=== PATIENT | female | born 1980 | race Caucasian/White ===

== ENCOUNTER 2017-09-23 08:00 | Outpatient (CLI) | payer OTHER ==
[2017-09-23 12:31] LABS: BASOPHILS # (AUTO) 0.1 10^3/uL (0.0-0.1); BASOPHILS % (AUTO) 0.8 %; EOSINOPHILS # (AUTO) 0.2 10^3/uL (0.0-0.7); EOSINOPHILS % (AUTO) 2.2 %; HGB - HEMOGLOBIN 13.5 g/dL (12.0-16.0); LYMPHOCYTES # (AUTO) 1.8 10^3/uL (1.5-3.5); LYMPHOCYTES % (AUTO) 16.5 %; MEAN CORPUSCULAR HEMOGLOBIN 31.6 pg (27.0-31.0); MEAN CORPUSCULAR VOLUME 87.7 fL (81.0-99.0); MEAN PLATELET VOLUME 8.9 fL (7.9-10.8); MONOCYTES # (AUTO) 0.7 10^3/uL (0.0-1.0); NEUTROPHILS # (AUTO) 8.1 10^3/uL (1.5-6.6); NEUTROPHILS % (AUTO) 74.5 %; PLT - PLATELET COUNT 211 10^3/uL (130-450); RED BLOOD COUNT 4.26 10^6/uL (4.20-5.40); RED CELL DISTRIBUTION WIDTH 13.3 % (12.0-15.0); WHITE BLOOD COUNT 10.9 x10^3/uL (4.8-10.8)
[2017-09-23 12:33] LABS: BILIRUBIN,URINE NEGATIVE (NEGATIVE); GLUCOSE, URINE (UA) NEGATIVE (NEGATIVE); KETONES,URINE (UA) NEGATIVE (NEGATIVE); LEUKOCYTE ESTERASE, URINE NEGATIVE (NEGATIVE); NITRITE,URINE NEGATIVE (NEGATIVE); OCCULT BLOOD,URINE NEGATIVE (NEGATIVE); PROTEIN,URINE NEGATIVE (NEGATIVE); UROBILINOGEN,URINE 0.2 (NORMAL) E.U./dL (NORMAL)
[2017-09-23 12:40] LABS: BACTERIA,URINE Few /HPF (None Seen); CLARITY,URINE CLEAR (CLEAR); RBC,URINE 0-5 /HPF (0-5); SQUAMOUS EPITHELIAL CELL,UR FEW Squamous (<= Few)
[2017-09-24 12:56] LABS: HIV AG/AB 4TH GEN NON-REACTIVE (NON-REACTIVE)
[2017-09-24 14:04] LABS: HEPATITIS B SURFACE ANTIGEN NON-REACTIVE (NON-REACTIVE)
== END 2017-09-23 08:01 | disposition home or self-care (01) ==
LOC: LAB.N 08:00
PROVIDERS: ATTEND Obstetrics & Gynecology
DX: Z36.9 Encounter for antenatal screening, unspecified (principal); Z36.0 Encounter for antenatal screening for chromosomal anomalies
CPT/HCPCS: 36415; 81001; 81599; 82105; 82677; 84702; 85025; 86336; 86592; 86762; 86850; 86900; 86901; 87340; 87389

== ENCOUNTER 2017-09-24 11:14 | Emergency (ER) | payer OTHER ==
[2017-09-24 11:43] LABS: BILIRUBIN,URINE NEGATIVE (NEGATIVE); GLUCOSE, URINE (UA) NEGATIVE (NEGATIVE); KETONES,URINE (UA) TRACE mg/dL (NEGATIVE); LEUKOCYTE ESTERASE, URINE NEGATIVE (NEGATIVE); NITRITE,URINE NEGATIVE (NEGATIVE); OCCULT BLOOD,URINE NEGATIVE (NEGATIVE); PROTEIN,URINE NEGATIVE (NEGATIVE); UROBILINOGEN,URINE 0.2 (NORMAL) E.U./dL (NORMAL)
[2017-09-24 11:50] LABS: CLARITY,URINE CLEAR (CLEAR); HCG UR QUAL POSITIVE
--- NOTE | 2017-09-24 11:53 | ED Physician Documentation ---
History of Present Illness - Stated complaint Stated Complaint: ABD CRAMPING/18 WKS PREG - Chief complaint Chief Complaint: Abd Pain - Additonal information Additional information: hx from pt 37 female approx 18 weeks EGA followed by [facility] this Am developed severe tearing lower abd pains lasting 20 min at a time no vag bleed no flank pain no hematuria hx similar sx when not - had eval including 2 ER visits, one pMD visit blood work, CT scan, scopes s dx Review of Systems Constitutional: denies: Fever, Chills Cardiac: denies: Chest pain / pressure Respiratory: denies: Dyspnea GI: reports: Abdominal Pain. 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 - Present Medications Home Medications: Ambulatory Orders Medication Instructions Recorded Confirmed Pnv No.122/Iron/Folic Acid 09/24/17 [ Multi Tablet] - Allergies Allergies/Adverse Reactions: Allergies Allergy/AdvReac Type Severity Reaction Status Date / Time No Known Drug Allergies Allergy Verified 09/24/17 11:19 - Social History Does the pt smoke?: Yes Smoking Status: Current every day smoker Does the pt drink ETOH?: No Does the pt have substance abuse?: No PD ED PE NORMAL - Vitals Vital signs reviewed: Yes - Cardiac Cardiac: RRR - Respiratory Respiratory: No respiratory distress, Clear bilaterally - Abdomen Abdomen: Soft, Other (gravid, soft, NT to palpate, no rebound guarding etc) - Back Back: No CVA TTP - Derm Derm: Normal color - Neuro Neuro: Alert and oriented X 3 Results - Vitals Vitals: Vital Signs - 24 hr 09/24/17 09/24/17 09/24/17 11:16 13:39 16:28 Temperature 36.2 C L 36.9 C 36.7 C Heart Rate 84 84 98 Respiratory 18 16 16 Rate Blood Pressure 111/62 110/65 120/77 O2 Saturation 97 100 100 Oxygen O2 Source Room air - Labs Labs: Laboratory Tests 09/24/17 09/24/17 09/24/17 11:30 11:30 11:30 WBC 13.7 H RBC 4.79 Hgb 14.8 Hct 43.3 MCV 90.5 MCH 30.9 MCHC 34.2 RDW 13.9 Plt Count 231 MPV 8.7 Neut # 11.9 H Lymph # 1.0 L Ford # 0.6 Eos # 0.1 Baso # 0.0 Absolute Nucleated RBC 0.00 Nucleated RBC % 0.0 Sodium 135 Potassium 3.5 Chloride 101 Carbon Dioxide 23 Anion Gap 11.0 BUN 8 Creatinine 0.4 Estimated GFR (MDRD) 181 Glucose 82 Calcium 9.2 Total Bilirubin 0.6 AST 37 ALT 39 Alkaline Phosphatase 43 Total Protein 7.2 Albumin 3.4 Globulin 3.8 Albumin/Globulin Ratio 0.9 L Lipase 25 Urine Color YELLOW Urine Clarity CLEAR Urine pH 7.0 Ur Specific [place] 1.020 Urine Protein NEGATIVE Urine Glucose (UA) NEGATIVE Urine Ketones TRACE Urine Occult Blood NEGATIVE Urine Nitrite NEGATIVE Urine Bilirubin NEGATIVE Urine Urobilinogen 0.2 (NORMAL) Ur Leukocyte Esterase NEGATIVE Ur Microscopic Review NOT INDICATED Urine Culture Comments NOT INDICATED Urine HCG, Qual POSITIVE - Rads (name of study) OB sono Radiology: See rad report (single live IUP 18+2 est wt appropriate for age, low lying placenta neds to be followed - epsiodes of pain coincide with brannon hocks ctx seen on sono - cervix is closed) PD MEDICAL DECISION MAKING - ED course ED course: neg urine - no infection and no blood to suggest renal colic sono shows brannon delacruz ctx, cervix closed, no abruption, no acute process d/w Dr Escalera who advises that at 18 weeks there is nothing that can be done even if this did progress to labor and rec fluids and tylenol is very worried about going home, he is not convinced the pain is brannon delacruz because she had similar pain before , wants to know what the cause if unfortunately, if prior wup including CT scans and scopes did not yield a dx I am unlikely to be able to determine a dx not already found - furthermore the pt is now which sig reduces the imaging options etc safely available I rec we try IVF and apap and rec by OB and likely dc with outpt OB fup per nurse, after the IVF and tylenol pt reported she felt better and was ready to go and took her dc papers and departed before I got to recheck her Departure - Departure Disposition: Home, Self Care Clinical Impression: Brannon Delacruz' contraction Condition: Good Follow-Up: Ovi Escalera MD [Provider Admit Priv/Credential] - Comments: The urine did not show any infection. The ultrasound showed a single live baby in the uterus. The placenta is low lying and the location needs to be checked periodically as the progresses to be sure the placenta does not cross over the cervix when you go into labor. But the placenta is atached to the uterine wall - there is no tear or bleeding The pain episodes you had coincided with brannon delacruz contractions seen on the ultrasound - brannon delacruz contractions are not premature labor and it is OK for you to go home. Recommend that you drink plenty of fluid - dehydration can make the uterus more irritable. If the pains occur more frequently or there is any bleeding or leaking fluid you need to call your OB and come back to the ER right away. Otherwise please follow up with your OB for a recheck this week.
[2017-09-24 12:03] LABS: BASOPHILS % (AUTO) 0.2 %; EOSINOPHILS # (AUTO) 0.1 10^3/uL (0.0-0.7); HGB - HEMOGLOBIN 14.8 g/dL (12.0-16.0); LYMPHOCYTES % (AUTO) 7.1 %; MEAN CORPUSCULAR HEMOGLOBIN 30.9 pg (27.0-31.0); MEAN CORPUSCULAR HGB CONC 34.2 g/dL (32.0-36.0); MEAN CORPUSCULAR VOLUME 90.5 fL (81.0-99.0); MEAN PLATELET VOLUME 8.7 fL (7.9-10.8); MONOCYTES # (AUTO) 0.6 10^3/uL (0.0-1.0); MONOCYTES % (AUTO) 4.2 %; NEUTROPHILS # (AUTO) 11.9 10^3/uL (1.5-6.6); NEUTROPHILS % (AUTO) 87.5 %; PLT - PLATELET COUNT 231 10^3/uL (130-450); RED BLOOD COUNT 4.79 10^6/uL (4.20-5.40); RED CELL DISTRIBUTION WIDTH 13.9 % (12.0-15.0); WHITE BLOOD COUNT 13.7 x10^3/uL (4.8-10.8)
[2017-09-24 12:11] LABS: ALBUMIN 3.4 g/dL (3.2-5.5); ALBUMIN/GLOBULIN RATIO 0.9 (1.0-2.2); BILIRUBIN,TOTAL 0.6 mg/dL (0.2-1.0); CALCIUM 9.2 mg/dL (8.5-10.3); CREATININE 0.4 mg/dL (0.4-1.0); TOTAL PROTEIN 7.2 g/dL (6.7-8.2)
--- NOTE | 2017-09-24 14:22 | Ultrasound Report ---
EXAM: LIMITED OBSTETRICAL ULTRASOUND EXAM DATE: 09/24/2017 01:45 PM. CLINICAL HISTORY: Pelvic pain. COMPARISON: None. TECHNIQUE: Real-time sonographic evaluation of the fetus performed by the stem crusher. Multiple repre sentative static images were saved for review. DATING: Established EGA 18 weeks 2 days with ALICIA 02/23/2018 based on LMP. EGA 18 weeks 1 day with ALICIA 02/24/2018 based on the current ultrasound. GENERAL EVALUATION Myles . Cardiac activity: 154 bpm. movement: Visualized. Presentation: Breech Placenta: Anterior position. No previa. Low-lying placenta coming to within 1 cm of the internal os. Small placental lobo. Amniotic fluid: Normal, PRUDENCE 12.7 MVP 4.7 cm. BIOMETRY Bi-Parietal Diameter (BPD): 3.93 cm, 18 weeks 0 days Head Circumference (HC): 15.18 cm, 18 weeks 1 day Abdominal Circumference (AC): 12.30 cm, 18 weeks 0 days Femur Length (FL): 2.69 cm, 18 weeks 1 day Estimated Weight: 223 g gm. ANATOMY Grossly unremarkable. MATERNAL STRUCTURES Uterus: Unremarkable. Cervix: Long and closed. Transabdominal length 3.2 cm. Right ovary/adnexa: 2.7 x 3.7 x 1.7 cm, unremarkable. Left ovary/adnexa: 2.0 x 3.1 x 1.5 cm, unremarkable. Free fluid: None. Other: Patient's pain appeared to correspond to Bracken Weems contractions during the exam. IMPRESSION: 1. Myles live intrauterine with gestational age 18 weeks 2 days based on LMP. 2. Estimated weight is within expected limits for assigned dating. 3. Low-lying placenta. Follow-up near term is recommended. 4. Pain during Bracken Weems contractions. [facility] Referring Provider Line: [phone] SITE ID: [id number]
[2017-09-24] MEDS ORDERED: ACETAMINOPHEN 325 MG TABLET PO STA (15:15)
[2017-09-24] MEDS ORDERED: SODIUM CHLORIDE 0.9% 1,000 ML IV ONE (15:15)
[2017-09-24 16:29] VITALS: BP 120/77
== END 2017-09-24 16:40 | disposition home or self-care (01) ==
LOC: ED 11:14
DX: O47.02 False labor before 37 completed weeks of gestation, second trimester (principal); O99.332 Smoking (tobacco) complicating pregnancy, second trimester; Z3A.18 18 weeks gestation of pregnancy
CPT/HCPCS: 36415; 76815; 80053; 81003; 81025; 83690; 85025; 96360; 99283; 99284; A9270; 81001; 87086

== ENCOUNTER 2017-10-12 07:16 | Outpatient (CLI) | payer OTHER ==
--- NOTE | 2017-10-13 15:42 | Ultrasound Report ---
OB ULTRASOUND: 10/12/2017 CLINICAL INDICATION: anatomy. COMPARISON: 09/24/2017. CLINICAL INDICATIONS: anatomy. TECHNIQUE: Real-time scanning was performed with member services representative static images obtained. LAST MENSTRUAL PERIOD 05/19/2017 CLINICAL AGE 20 weeks 6 days US AGE 20 weeks 5 days EFW HADLOCK 394 grams EFW% HADLOCK 54% HEART RATE 152 bpm EDC 02/23/2018 US EDC 02/24/2018 BPD HADLOCK 19 weeks 6 days; Mean mm 46 HC HADLOCK 20 weeks 5 days; Mean mm 183 AC HADLOCK 21 weeks 0 days; Mean mm 159 FL HADLOCK 21 weeks 2 days; Mean mm 36 PRESENTATION cephalic. PLACENTAL LOCATION anterior. CERVICAL LENGTH TA 3.3 cm AMNIOTIC FLUID 10.2 cm; MVP 4.0 cm FINDINGS There is a single viable intrauterine gestation, in cephalic presentation. heart rate is 152 BPM. The placenta is anterior, and low lying, terminating 1.1 cm from the os. The amniotic fluid volume is subjectively normal, with the deepest pocket of 4 cm. By size, the fetus measures 20 weeks 5 days (20 weeks 6 days by previous sonogram). The following anatomic structures were visualized and appear normal: The intracranial contents, including the ventricles and posterior fossa; the lips and orbits; the spine; the heart, including 4 chamber view and outflow tracts, and diaphragm; the abdominal contents, including the stomach, the bilateral kidneys, and urinary bladder, as well as a normal 3 vessel cord insertion; 4 limbs. No free fluid or adnexal lesion is appreciated. IMPRESSION: SINGLE VIABLE INTRAUTERINE GESTATION, WITH EXPECTED GROWTH. NORMAL ANATOMIC SURVEY. ANTERIOR, LOW LYING PLACENTA. THIS SHOULD BE FOLLOWED UP IN THE THIRD TRIMESTER. TD: 10/12/2017 11:13 MTDD
== END 2017-10-12 07:17 | disposition home or self-care (01) ==
LOC: DI 07:16
PROVIDERS: ATTEND Obstetrics & Gynecology
DX: Z36.9 Encounter for antenatal screening, unspecified (principal); O44.42 Low lying placenta NOS or without hemorrhage, second trimester
CPT/HCPCS: 76811

== ENCOUNTER 2017-12-16 08:34 | Outpatient (CLI) | payer OTHER | END 2017-12-16 08:35 | disposition home or self-care (01) | LOC: DI 08:34 | PROVIDERS: ATTEND Obstetrics & Gynecology | DX: Z53.9 Procedure and treatment not carried out, unspecified reason (principal) ==

== ENCOUNTER 2018-01-03 21:38 | Observation (INO) | payer OTHER ==
[2018-01-03 22:16] LABS: BASOPHILS # (AUTO) 0.1 10^3/uL (0.0-0.1); BASOPHILS % (AUTO) 0.6 %; EOSINOPHILS # (AUTO) 0.2 10^3/uL (0.0-0.7); EOSINOPHILS % (AUTO) 1.5 %; HGB - HEMOGLOBIN 11.7 g/dL (12.0-16.0); LYMPHOCYTES # (AUTO) 2.3 10^3/uL (1.5-3.5); LYMPHOCYTES % (AUTO) 17.7 %; MEAN CORPUSCULAR HGB CONC 33.3 g/dL (32.0-36.0); MEAN PLATELET VOLUME 8.9 fL (7.9-10.8); MONOCYTES % (AUTO) 7.5 %; NEUTROPHILS # (AUTO) 9.4 10^3/uL (1.5-6.6); NEUTROPHILS % (AUTO) 72.7 %; PLT - PLATELET COUNT 285 10^3/uL (130-450); RED BLOOD COUNT 3.91 10^6/uL (4.20-5.40); RED CELL DISTRIBUTION WIDTH 13.1 % (12.0-15.0)
--- NOTE | 2018-01-04 00:49 | Ultrasound Preliminary Report ---
Exam: US OB LIMITED IMPRESSION: 1. Anterior placenta without evidence of previa or abruption. 2. PRUDENCE 9.5 cm. [facility] SITE ID: [id number]
--- NOTE | 2018-01-04 01:05 | Ultrasound Report ---
EXAM: OB LIMITED EXAM DATE: 01/03/2018 11:28 PM. CLINICAL HISTORY: Vaginal bleeding. COMPARISON: 09/24/2017. TECHNIQUE: Real-time transabdominal sonographic evaluation performed. Static images obtained and revi ewed. FINDINGS: Established EGA 32 weeks, 5 days with ALICIA 02/23/2018. Single fetus in cephalic position. heart rate 147 beats per minute. The placenta is anterior without evidence of previa or abruption. Amniotic fluid index 9.5 cm, MVP 3.1 cm. IMPRESSION: 1. Anterior placenta without evidence of previa or abruption. 2. PRUDENCE 9.5 cm. [facility] Referring Provider Line: [phone] SITE ID: [id number]
[2018-01-04] MEDS ORDERED: LACTATED RINGERS 1,000 ML IV ONE ×2 (01:19→01:27)
[2018-01-04] MEDS ORDERED: SODIUM CHLORIDE FLUSH 0.9% 10 ML SYRINGE IVP PRN (01:49)
[2018-01-04] MEDS: BETAMETHASONE 30 MG/5 ML VIAL IM SCH (01:52)
[2018-01-04] MEDS ORDERED: ACETAMINOPHEN 325 MG TABLET PO PRN (01:55)
[2018-01-04] MEDS ORDERED: ZOLPIDEM 5 MG TABLET PO PRN (01:56)
--- NOTE | 2018-01-04 02:10 | Ultrasound Preliminary Report ---
Exam: US OB TRANSVAGINAL IMPRESSION: 1. Reportedly 32 week 6 day gestation. Heart rate 144 bpm currently with cephalic presentation. 2. Cervix measures short at 1.8 cm. There is probable small amount of mucus within the endocervical c anal but without definitive funneling. [facility] SITE ID: [id number]
--- NOTE | 2018-01-04 02:20 | Ultrasound Report ---
EXAM: LIMITED OB TRANSVAGINAL ULTRASOUND EXAM DATE: 01/04/2018 01:26 AM. CLINICAL HISTORY: Cervical length, cannot evaluate cervix clinically. COMPARISON: Prior day. TECHNIQUE: Transvaginal imaging of the cervix. IMPRESSION: 1. Reportedly 32 week 6 day gestation. Heart rate 144 bpm currently with cephalic presentation. 2. Cervix measures short at 1.8 cm. There is probable small amount of mucus within the endocervical c anal but without definitive funneling. [facility] Referring Provider Line: [phone] SITE ID: [id number]
[2018-01-04] MEDS: LACTATED RINGERS 1,000 ML IV SCH ×4 (02:50→17:28)
--- NOTE | 2018-01-04 08:27 | PROVIDER PROGRESS NOTE ---
Subjective - Prog Note Date Prog Note Date: 01/04/18 Prog Note Time: 08:24 - Subjective Pt reports feeling: Improved (Pt christiano contractions. Pt is drinking pot of coffee daily. Still smokes. 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 First C/ S for breech. Pt has had a Cold knife [facility]. Reviewed Hx with Dr Bradley.) Objective - Vital Signs/Intake & Output Reviewed Vital Signs: Yes Vital Signs: Vital Signs x48h Temp Pulse Resp BP Pulse Ox 01/04/18 08:10 96 18 109/49 L 98 01/04/18 06:08 36.8 C 81 17 106/57 L 96 01/04/18 02:09 36.8 C 82 20 113/68 Intake & Output: Intake & Output 01/01/18 01/02/18 01/03/18 01/04/18 23:59 23:59 23:59 23:59 Intake Total 1000 Balance 1000 - Objective General Appearance: positive: No acute distress, Alert ENT: positive: ENT inspection nml Neck: positive: Nml inspection Respiratory: positive: Chest non-tender, No respiratory distress, Breath sounds nml Cardiovascular: positive: Regular rate & rhythm, No murmur, No gallop Abdomen: positive: Non-tender, No distention, Mass (Uterus is nontender NST is not picking up any contractions.) Back: positive: Nml inspection. negative: CVA tenderness (R), CVA tenderness (L ) Skin: positive: Color nml, No rash, Warm, Dry Extremities: negative: Calf tenderness, Sydney's sign/cords Neurologic/Psychiatric: positive: Oriented x3 - Lab Results Fish Bones: 01/03/18 22:10 Other Labs: Lab Results x24hrs 01/03/18 Range/Units 22:10 WBC 13.0 H (4.8-10.8) x10^3/uL RBC 3.91 L (4.20-5.40) 10^6/uL Hgb 11.7 L (12.0-16.0) g/dL Hct 35.2 L (37.0-47.0) % MCV 90.0 (81.0-99.0) fL MCH 30.0 (27.0-31.0) pg MCHC 33.3 (32.0-36.0) g/dL RDW 13.1 (12.0-15.0) % Plt Count 285 (130-450) 10^3/uL MPV 8.9 (7.9-10.8) fL Neut # 9.4 H (1.5-6.6) 10^3/uL Lymph # 2.3 (1.5-3.5) 10^3/uL Giles # 1.0 (0.0-1.0) 10^3/uL Eos # 0.2 (0.0-0.7) 10^3/uL Baso # 0.1 (0.0-0.1) 10^3/uL Absolute Nucleated RBC 0.00 x10^3/uL Nucleated RBC % 0.0 /100WBC Assessment/Plan - Problem List (1) with 33 completed weeks gestation Impression: Pt is a 37 yo 33 week prior C/S with cervical changes. by Dr Lamb exam +1. Cx is 1.8 cm by US. Pt has received first dose of betamethazone 12.5 mg. Second dose planed for this AM at 0100. Cautioned pt about smoking and delivery. need to limit caffeine intake. Prior C/S for breech. pt is scheduled for C/S at 39 weeks. If delivery anticipated prior to 36 wks need to transport if able. Plan to discharge tomorrow if stable.
[2018-01-04] MEDS ORDERED: POLYETHYLENE GLYCOL 3350 17 GM PACKET PO SCH (09:00)
--- NOTE | 2018-01-04 11:04 | HISTORY & PHYSICAL EXAMINATION ---
DATE OF SERVICE: 01/04/2018 Physician: Ovi Bradley MD OBSERVATION H AND P DIAGNOSES 1. Spontaneous painless bleeding. 2. A 32-week 6-day gestation. 3. Prior report of placenta previa. 4. Smoker. 5. Advanced maternal age. 6. Prior C/S HISTORY OF PRESENT ILLNESS: Patient is a 37-year-old 5, para 1-0-3-1, at 32 weeks 6 days' gestation based on early ultrasound with an ALICIA of 02/23/2018. At roughly 9 p.m. tonight she experienced spontaneous bleeding of bright red blood, described as a volume typical of a menstrual period. There was no suspicion of ruptured membranes, and patient did not report regular uterine contractions. She had no continued abdominal or uterine pain. Patient has had regular care. She reports that there was suspicion of previa. At 18 weeks' gestational age, she had an ER visit for tearing abdominal pain that was self- limiting and spontaneously resolved. With today's complaints there are no fevers, chills, or recent illness or recent intercourse. She reports no abdominal trauma. She has had a history of cervical dysplasia inclusive of cervical conization and laser ablation due to CIRILO 3 in 2013. She is a current smoker. Obstetrically, she had a delivery in 2012 of a living male at 38 weeks' gestation. Prior to that, she has had 3 therapeutic abortions. PAST MEDICAL HISTORY: Patient has difficulties with depression and peripartum depression. PAST SURGICAL HISTORY: section; cervical conization and laser ablation of CIS in 2013. ALLERGIES: NO KNOWN DRUG ALLERGIES. MEDICATIONS: vitamins and iron. FAMILY HISTORY: Positive for diabetes, a neurologic tube defect, congenital heart defect. SOCIAL HISTORY: Domestic partner Sean Joshua, who is the father of the baby. 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 Smokes. No drug or alcohol use reported. OBSTETRICAL LABS: Blood type A-positive, antibody negative. Pap smear normal cytology. HPV negative. GC chlamydia negative, HIV negative, hepatitis B surface antigen negative. RPR negative. Urine culture negative. Glucose challenge test not listed. REVIEW OF SYSTEMS CONSTITUTIONAL: Negative. HEENT: Negative. PULMONARY: Negative. CARDIAC: Negative. GASTROINTESTINAL: Negative. GENITOURINARY: Reference HPI. MUSCULOSKELETAL: Negative. NEUROLOGICAL: Negative. PSYCH: Currently feels well and not depressed. PHYSICAL EXAMINATION GENERAL: Well groomed, lying comfortably on L & D gurney, alert, oriented. NECK: Supple. No thyromegaly. HEENT: EOMI. Nonicteric sclerae. BREASTS: Deferred. LUNGS: Clear. CARDIAC: Exam regular, no murmur, no gallop. ABDOMEN: No flank pain. No organomegaly. No tenderness. UTERUS: Slightly smaller than expected by Barry vertex presentation. Rare mild contraction, no pattern. External monitor baseline 120s to 135, moderate variability, no worrisome decels, rare contractions. EXTERNAL GENITALIA: No lesions. VAGINA: Scant old blood, no fluid. CERVIX: Cannot reach cervix; it is posterior and tender, +1 station though. Await ultrasound. EXTREMITIES: Nonedematous. NEUROLOGIC: Grossly intact. SKIN: No obvious rash. ASSESSMENT: Patient experienced a spontaneous bleed this evening that has been limiting. Physical examination finds evidence of vaginal bleeding. Ultrasound documents no current previa or evidence of abruption. That said, presenting part is lower than expected, and patient did report pelvic pressure. There is no regular contraction pattern by palpation or tocodynamometer. Patient is status post cone biopsy and laser cervical surgery. This may increase her chances for delivery. Note, the surgery was done after her vaginal delivery in 2012. These factors warrant caution. PLAN 1. Continued observation with patient formally admitted for observation. 2. Fluid support with a 1 liter bolus. 3. Betamethasone 12 mg x2 doses. 4. We will check cervical length by ultrasound. This observation should be of limited time duration and not beyond 72 hours. TD: 01/04/2018 02:54 [facility]PITALJosé Antonio
[2018-01-04] MEDS: SODIUM CHLORIDE FLUSH 0.9% 10 ML SYRINGE IVP SCH ×2 (11:56→14:40)
[2018-01-05] MEDS: BETAMETHASONE 30 MG/5 ML VIAL IM SCH (01:47)
[2018-01-05 01:56] VITALS: BP 95/43
[2018-01-05] MEDS: SODIUM CHLORIDE FLUSH 0.9% 10 ML SYRINGE IVP SCH (08:08)
--- NOTE | 2018-01-05 08:49 | PROVIDER PROGRESS NOTE ---
Subjective - Prog Note Date Prog Note Date: 01/05/18 Prog Note Time: 08:46 - Subjective Pt reports feeling: Improved (Pt notes good FM. christiano contractions. Spotting resolving recieved her second dose of Betamethazone.) Objective - Vital Signs/Intake & Output Vital Signs: Vital Signs x48h Temp Pulse Resp BP Pulse Ox 01/05/18 01:54 36.5 C 85 16 95/43 L 97 Intake & Output: Intake & Output 01/02/18 01/03/18 01/04/18 01/05/18 23:59 23:59 23:59 23:59 Intake Total 3000 Output Total 1550 1050 Balance 1450 -1050 - Objective General Appearance: positive: No acute distress, Alert Comments/Other: NST reactive - Lab Results Fish Bones: 01/03/18 22:10 Assessment/Plan - Problem List (1) with 33 completed weeks gestation Impression: to followup in 1 week. (2) Pollok Weems' contraction Impression: P tto return for further bleeding. Pelvic rest. no lifting. 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
== END 2018-01-05 09:21 | disposition home or self-care (01) ==
LOC: WFO 21:38 → FBP 21:43 → WFO 21:43 → FBP 01-04 01:49
PROVIDERS: ADMIT Obstetrics & Gynecology; ATTEND Obstetrics & Gynecology
DX: O46.93 Antepartum hemorrhage, unspecified, third trimester (principal); O47.03 False labor before 37 completed weeks of gestation, third trimester; O99.333 Smoking (tobacco) complicating pregnancy, third trimester; O09.523 Supervision of elderly multigravida, third trimester; O34.219 Maternal care for unspecified type scar from previous cesarean delivery; N85.8 Other specified noninflammatory disorders of uterus; O34.43 Maternal care for other abnormalities of cervix, third trimester; Z3A.32 32 weeks gestation of pregnancy
CPT/HCPCS: 36415; 76815; 76817; 85025; 96360; 96361; 96372; 99213; A9270; G0378; J7120

== ENCOUNTER 2018-01-11 09:29 | Outpatient (CLI) | payer OTHER ==
[2018-01-11 12:51] LABS: HGB - HEMOGLOBIN 12.2 g/dL (12.0-16.0); MEAN CORPUSCULAR HEMOGLOBIN 30.4 pg (27.0-31.0); MEAN CORPUSCULAR HGB CONC 33.4 g/dL (32.0-36.0); MEAN CORPUSCULAR VOLUME 90.9 fL (81.0-99.0); MEAN PLATELET VOLUME 9.7 fL (7.9-10.8); RED BLOOD COUNT 4.01 10^6/uL (4.20-5.40); RED CELL DISTRIBUTION WIDTH 13.1 % (12.0-15.0); WHITE BLOOD COUNT 13.9 x10^3/uL (4.8-10.8)
== END 2018-01-11 09:30 ==
LOC: LAB.N 09:29
PROVIDERS: ATTEND Obstetrics & Gynecology
DX: Z34.90 Encounter for supervision of normal pregnancy, unspecified, unspecified trimester (principal)
CPT/HCPCS: 36415; 82950; 85027; 86850

== ENCOUNTER 2018-01-19 08:08 | Outpatient (CLI) | payer OTHER | END 2018-01-19 08:09 | disposition home or self-care (01) | LOC: LAB 08:08 | PROVIDERS: ATTEND Obstetrics & Gynecology | DX: O99.810 Abnormal glucose complicating pregnancy (principal) | CPT/HCPCS: 36415; 82951; 82952 ==

== ENCOUNTER 2018-01-24 14:57 | Outpatient (CLI) | payer OTHER | END 2018-01-24 14:58 | LOC: LAB.R 14:57 | PROVIDERS: ATTEND Obstetrics & Gynecology | DX: Z36.89 Encounter for other specified antenatal screening (principal) | CPT/HCPCS: 87081 ==

== ENCOUNTER 2018-02-21 11:30 | Outpatient (CLI) | END 2018-02-21 11:31 | disposition home or self-care (01) ==

== ENCOUNTER 2018-02-22 05:30 | Inpatient (IN) | payer OTHER ==
[2018-02-22] MEDS ORDERED: LACTATED RINGERS 1,000 ML IV ONE ×4 (06:05→08:34)
[2018-02-22 06:35] LABS: MEAN CORPUSCULAR HGB CONC 33.1 g/dL (32.0-36.0); MEAN CORPUSCULAR VOLUME 90.4 fL (81.0-99.0); MEAN PLATELET VOLUME 9.9 fL (7.9-10.8); RED CELL DISTRIBUTION WIDTH 13.5 % (12.0-15.0); WHITE BLOOD COUNT 11.7 x10^3/uL (4.8-10.8)
[2018-02-22] MEDS ORDERED: CITRIC ACID/SODIUM CITRATE 15 ML UDC PO ONE (07:03)
--- NOTE | 2018-02-22 07:27 | PREOP HISTORY & PHYSICAL ---
DATE OF SERVICE: 02/22/2018 Physician: Ovi Bradley MD PREOPERATIVE HISTORY/PHYSICAL 02/21/2018 FOR ANTICIPATED DATE OF PROCEDURE 02/22/2018 DIAGNOSES 1. A 39-week' gestation. 2. Prior section. 3. Desires sterilization. 4. Advanced maternal age. 5. Smoker. HISTORY OF PRESENT ILLNESS: Patient is a 38-year-old 5, para 1-0-3-1 woman who is dated by LMP confirmed with early ultrasound as having an ALICIA of March 01. LMP is 05/25/2017 with ultrasound on 08/02/2017, 10 weeks 5 days. [facility]. Throughout her , she has continued tobacco use, though she has attempted to taper this. She has a history of gestational hypertension and cervical incontinence in prior pregnancies. There is a history of genital herpes, which is inactive on acyclovir suppression. There is also a distant history of HGSIL Pap smear. Reference record. Basic labs: Chlamydia GC negative. Blood type A positive. Antibody screen negative. HIV negative. RPR nonreactive, rubella immune, hepatitis B surface antigen negative. Urinalysis negative. Quad marker negative. Pap smear . Glucola challenge test positive. Glucose tolerance test normal (fasting 80, 1-hour 154, 2-hour 148, and 3-hour 158). Strep status negative. PAST MEDICAL HISTORY: Depression with depression. PAST SURGICAL HISTORY: section. MEDICATIONS 1. Acyclovir. 2. vitamins with iron. FAMILY HISTORY: Diabetes: Mother, maternal parents. Depression: Mother, aunts, and grandmother. Hypertension: Mother, father, paternal grandmother. Congenital anomalies: None. Unexplained retardation: None. Chromosomal abnormalities: None. 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 No drug or alcohol use but has continued to smoke throughout the , though she has tapered the amount. REVIEW OF SYSTEMS CONSTITUTIONAL: Negative. HEENT: Negative. LUNGS: Negative now, but prior smoker's cough. Chest x-ray negative for pneumonia or mass. CARDIAC: Negative. GASTROINTESTINAL: Negative. GENITOURINARY: Reference cytology and LEEP. MUSCULOSKELETAL: Negative. NEUROLOGIC: Negative. SKIN: Negative. PHYSICAL EXAMINATION GENERAL: Well groomed, pleasant, slender. VITAL SIGNS: Normotensive. HEENT: Supple neck. No thyromegaly. Normal dentition. EOMI. No jaundice. LUNGS: On rare occasion wheeze, but otherwise clear. CARDIAC: Regular. No murmur, no gallop. ABDOMEN: No hepatosplenomegaly. No abdominal tenderness. UTERUS: Enlarged consistent with dates. Estimated weight 7.5 pounds. Vertex presentation. EXTERNAL GENITALIA: No lesions. VAGINA: No blood or discharge. CERVIX: 1 cm, fairly thick, unengaged. EXTREMITIES: Nonedematous. NEUROLOGIC: Alert, oriented. PSYCHOLOGIC: Normal demeanor, cooperative. ASSESSMENT AND PLAN: This is a [id number] gestation that after counseling refuses a vaginal after . She realizes that repeat section has more blood loss than vaginal after . Additionally, she realizes all the operative risks including hemorrhage, transfusion, sharing medications. After counseling session, she is certain of her decision for . We also discussed sterilization, and she understands this to be permanent and irreversible. She understands that there is additional risk with additional surgery that includes blood loss and future bleed. After discussion, patient signed informed consent paperwork. Preoperatively, she will receive Ancef. TD: 02/21/2018 16:13 KAREN
[2018-02-22] MEDS ORDERED: SODIUM CHLORIDE 0.9% 10 ML VIAL IV ONE (07:30)
[2018-02-22] MEDS ORDERED: MORPHINE 10 MG/ML VIAL IVP ONE (07:30)
[2018-02-22] MEDS ORDERED: ePHEDrine 50 MG/ML VIAL IVP ONE (07:30)
[2018-02-22] MEDS ORDERED: ACETAMINOPHEN 1,000 MG/100 ML 100 ML IV ONE (07:30)
[2018-02-22] MEDS ORDERED: PHENYLEPHRINE 50 MG/5 ML VIAL IV ONE (07:30)
[2018-02-22] MEDS ORDERED: fentaNYL 100 MCG/2 ML VIAL IVP ONE (07:30)
[2018-02-22] MEDS ORDERED: LIDOCAINE-MPF 2% 5 ML VIAL IM ONE (07:30)
[2018-02-22] MEDS ORDERED: OXYTOCIN 10 UNIT/ML VIAL IV ONE (07:30)
[2018-02-22] MEDS ORDERED: ONDANSETRON 4 MG/2 ML VIAL IVP ONE (07:30)
[2018-02-22 07:34] LABS: BILIRUBIN,URINE NEGATIVE (NEGATIVE); GLUCOSE, URINE (UA) NEGATIVE (NEGATIVE); KETONES,URINE (UA) NEGATIVE (NEGATIVE); LEUKOCYTE ESTERASE, URINE NEGATIVE (NEGATIVE); NITRITE,URINE NEGATIVE (NEGATIVE); OCCULT BLOOD,URINE NEGATIVE (NEGATIVE); PROTEIN,URINE NEGATIVE (NEGATIVE); UROBILINOGEN,URINE 0.2 (NORMAL) E.U./dL (NORMAL)
[2018-02-22 07:44] LABS: BACTERIA,URINE Rare /HPF (None Seen); CLARITY,URINE CLEAR (CLEAR); RBC,URINE None Seen /HPF (0-5); SQUAMOUS EPITHELIAL CELL,UR RARE Squamous (<= Few)
[2018-02-22] MEDS ORDERED: SODIUM CHLORIDE FLUSH 0.9% 10 ML SYRINGE IVP PRN (07:52)
[2018-02-22] MEDS ORDERED: ZOLPIDEM 5 MG TABLET PO PRN (07:52)
[2018-02-22] MEDS ORDERED: diphenhydrAMINE 25 MG CAPSULE PO PRN (07:52)
[2018-02-22] MEDS ORDERED: ONDANSETRON 4 MG/2 ML VIAL IVP PRN (07:52)
[2018-02-22] MEDS ORDERED: MAGNESIUM HYDROXIDE 2,400 MG/30 ML UDC PO PRN (07:52)
[2018-02-22] MEDS ORDERED: HYDROCORTISONE/PRAMOXINE 10 GM PR PRN (07:52)
[2018-02-22] MEDS ORDERED: WITCH HAZEL/GLYCERIN 1 EACH MED..PAD TOP PRN (07:52)
--- NOTE | 2018-02-22 09:12 | OPERATIVE REPORT ---
Operative Report - General Admit Date: 02/22/18 Procedure Date: 02/22/18 Planned Procedure: Repeat section and tubal ligation Pre-Op Diagnosis: Prior lower segment transverse section, refused ; desires ster Procedure Performed: Repeat lower segment transverse section; bilateral salpingectomy; ligation of uterine varicosity Post Op Diagnosis: Same as above - Procedure Note Primary Surgeon: Ovi Bradley MD Secondary Surgeon: Stefanie Ramirez, certified nurse biztalk developer Anesthesia Provider: Zaid Kim certified nurse cell coverer Anesthesia Technique: Spinal Pathology: Tubal segments sent to pathology, right sided with marking suture IV Fluids (mL): 1,500 Estimated Blood Loss (mL): 350 Urine Output (mL): 250 Drain/Tube Type: Other (Callahan catheter with clear urine) Complications: None - Other Other Information/Narrative: Living female ; Apgars X/Y; weight
[2018-02-22] MEDS ORDERED: OXYTOCIN/SODIUM CHLORIDE 500 ML IV ONE (09:48)
[2018-02-22] MEDS: NICOTINE 14 MG PATCH TOP SCH (10:11)
[2018-02-22] MEDS: ACETAMINOPHEN 500 MG TABLET PO SCH ×3 (13:05→22:04)
[2018-02-22] MEDS: IBUPROFEN 600 MG TABLET PO SCH ×3 (13:06→20:04)
[2018-02-22] MEDS: DOCUSATE SODIUM 100 MG CAPSULE PO SCH ×2 (14:54→20:04)
[2018-02-22] MEDS: SODIUM CHLORIDE FLUSH 0.9% 10 ML SYRINGE IVP SCH (14:54)
[2018-02-22] MEDS: oxyCODONE 5 MG TABLET PO PRN (16:37)
[2018-02-22] MEDS: ceFAZolin 2 GM/50 ML 2 GM/50 ML BAG IV SCH (18:39)
[2018-02-23] MEDS: oxyCODONE 5 MG TABLET PO PRN ×4 (01:43→23:09)
[2018-02-23] MEDS: IBUPROFEN 600 MG TABLET PO SCH ×3 (04:27→15:55)
[2018-02-23 05:56] LABS: BASOPHILS % (AUTO) 0.2 %; EOSINOPHILS # (AUTO) 0.1 10^3/uL (0.0-0.7); EOSINOPHILS % (AUTO) 0.4 %; HGB - HEMOGLOBIN 9.7 g/dL (12.0-16.0); LYMPHOCYTES % (AUTO) 20.4 %; MEAN CORPUSCULAR HEMOGLOBIN 30.4 pg (27.0-31.0); MEAN CORPUSCULAR HGB CONC 33.3 g/dL (32.0-36.0); MEAN CORPUSCULAR VOLUME 91.4 fL (81.0-99.0); MEAN PLATELET VOLUME 9.9 fL (7.9-10.8); MONOCYTES # (AUTO) 1.2 10^3/uL (0.0-1.0); MONOCYTES % (AUTO) 8.5 %; NEUTROPHILS # (AUTO) 10.2 10^3/uL (1.5-6.6); NEUTROPHILS % (AUTO) 70.5 %; PLT - PLATELET COUNT 256 10^3/uL (130-450); RED BLOOD COUNT 3.19 10^6/uL (4.20-5.40); RED CELL DISTRIBUTION WIDTH 13.6 % (12.0-15.0); WHITE BLOOD COUNT 14.5 x10^3/uL (4.8-10.8)
[2018-02-23] MEDS: ACETAMINOPHEN 500 MG TABLET PO SCH ×4 (06:03→23:09)
[2018-02-23] MEDS: ceFAZolin 2 GM/50 ML 2 GM/50 ML BAG IV SCH ×4 (07:41→14:27)
[2018-02-23] MEDS: SODIUM CHLORIDE FLUSH 0.9% 10 ML SYRINGE IVP SCH ×3 (07:42→19:34)
[2018-02-23] MEDS: LACTATED RINGERS 1,000 ML IV SCH ×3 (07:42→14:27)
[2018-02-23] MEDS: DOCUSATE SODIUM 100 MG CAPSULE PO SCH (08:48)
[2018-02-23] MEDS: NICOTINE 14 MG PATCH TOP SCH (08:48)
--- NOTE | 2018-02-23 08:53 | PROVIDER PROGRESS NOTE ---
Subjective - General Admit Date: 02/22/18 Procedure Date: 02/22/18 Post Op Days: 1 Procedure Performed: Repeat lower segment transverse section, bilateral salpingectomy, - Review of Systems Wound/Incisions: positive: Healing well General: positive: No symptoms HEENT: positive: No symptoms Pulmonary: positive: No symptoms Cardiovascular: positive: No symptoms Gastrointestinal: positive: No symptoms Genitourinary: positive: No symptoms Musculoskeletal: positive: No symptoms Skin: positive: No symptoms Psychiatric: positive: No symptoms Objective - Patient Data Vital Signs: Vital Signs x48h Temp Pulse Resp BP Pulse Ox 02/23/18 08:32 98.2 F 82 18 106/58 L 98 02/23/18 05:46 98.1 F 16 100/55 L 96 02/23/18 01:36 97.9 F 70 17 98/57 L 96 02/23/18 01:00 12 Weight: Weight 02/21/18 02/22/18 02/23/18 23:59 23:59 23:59 Weight (kg) 74.843 kg Intake & Output: Intake and Output Totals x24h 02/21/18 02/22/18 02/23/18 23:59 23:59 23:59 Intake Total 500 Output Total 1684 2049 Balance -1184 -2049 - Lab Results Lab Results: 02/23/18 05:06 Other Lab Results: Lab Results x24hrs 02/23/18 Range/Units 05:06 WBC 14.5 H (4.8-10.8) x10^3/uL RBC 3.19 L (4.20-5.40) 10^6/uL Hgb 9.7 L (12.0-16.0) g/dL Hct 29.1 L (37.0-47.0) % MCV 91.4 (81.0-99.0) fL MCH 30.4 (27.0-31.0) pg MCHC 33.3 (32.0-36.0) g/dL RDW 13.6 (12.0-15.0) % Plt Count 256 (130-450) 10^3/uL MPV 9.9 (7.9-10.8) fL Neut # (Auto) 10.2 H (1.5-6.6) 10^3/uL Lymph # (Auto) 3.0 (1.5-3.5) 10^3/uL [place] # (Auto) 1.2 H (0.0-1.0) 10^3/uL Eos # (Auto) 0.1 (0.0-0.7) 10^3/uL Baso # (Auto) 0.0 (0.0-0.1) 10^3/uL Absolute Nucleated RBC 0.00 x10^3/uL Nucleated RBC % 0.0 /100WBC - Current Medications Current Medications: Current Medications Generic Name Dose Route Start Last Admin Trade Name Freq PRN Reason Stop Dose Admin Acetaminophen 1,000 mg 02/22/18 08:00 02/23/18 06:03 Tylenol PO 1,000 mg Q8H JAMES Administration Docusate Sodium 100 mg 02/22/18 09:00 02/23/18 08:48 Colace 100mg Capsule PO 100 mg BID JAMES Administration Cefazolin Sodium/Dextrose 2 gm in 50 mls @ 100 mls/hr 02/22/18 06:30 07:43 Ancef 2 Gm/50 Ml IV Not Given Q8H JAMES Lactated Ringer's 1,000 mls @ 100 mls/hr 02/22/18 08:00 02/23/18 07:43 Lr IV Not Given .Q10H JAMES Ibuprofen 600 mg 02/22/18 08:00 02/23/18 04:27 Motrin PO 600 mg Q6H JAMES Administration Nicotine 1 patch 02/22/18 09:00 02/23/18 08:48 Nicoderm TOP 1 patch DAILY JAMES Administration Oxycodone HCl 5 mg 02/22/18 07:52 02/23/18 06:03 Roxicodone PO 5 mg Q4HR PRN Administration PAIN Sodium Chloride 10 ml 02/22/18 09:00 02/23/18 07:42 Normal Saline Flush 0.9% IVP Not Given 0100,0900,1700 [facility] Physical Exam - Physical Exam General: positive: No acute distress HEENT: positive: Moist mucous membranes Neck: positive: Supple w/out meningeal sx Cardiac: positive: Regular Rate Resipratory: positive: Clear to ausultation robert Abdomen: positive: Normal Bowel sounds Female : positive: Enlarged uterus (Uterus 17 week size; firm nontender) Extremities: positive: No pedal edema, Non tender Skin: positive: Warm and dry Neurologic: positive: Alert and Oriented X 3, Normal motor/no weakness, Normal Sensation, Normal Speech Assessment/Plan - Assessment/Plan Assessment: Patient is recovering well after her and tolerating her mild anemia ( postop hemoglobin 9.7). She is taking solid nutrition and liquids well. She is breast-feeding without difficulty. Plan: Continue supportive care. Add supplemental iron to medications. Respiratory therapy was to talk to the patient later today about strategies for smoking cessation
--- NOTE | 2018-02-23 09:05 | OPERATIVE REPORT ---
DATE OF SERVICE: 02/22/2018 Physician: Ovi Bradley MD PREOPERATIVE DIAGNOSES 1. Prior lower segment transverse section, vaginal after refused. 2. Desires sterilization. 3. Advanced maternal age. 4. Smoker, smoking in . POSTOPERATIVE DIAGNOSES 1. Prior lower segment transverse section, vaginal after refused. 2. Desires sterilization. 3. Advanced maternal age. 4. Smoker, smoking in . 5. Large uterine varicosities. PROCEDURES 1. Repeat lower segment transverse section. 2. Bilateral salpingectomy with LigaSure. 3. Suture ligation of large right-sided varicosity. SURGEON: Ovi Bradley MD, FACOG, FICS FINAL ASSEMBLY AND PACKING SUPERVISOR: Stefanie Ramirez CNM, SANDFILL OPERATOR SURFACE. ANESTHESIA PROVIDER: Zaid Kim CRNA. TETRYL WRINGER OPERATOR: Leland Fraga MD, Pediatrics. ANESTHESIA TYPE: Spinal with Duramorph cocktail. COMPLICATIONS: None. ESTIMATED BLOOD LOSS: 350 mL. FLUIDS: 1500 mL. URINE OUTPUT: 250 mL., clear. DRAINS: Callahan in place and functional. FINDINGS: Incision start was at 0817 hours. At 0822 hours, a living female was born weighing 7lbs 6.4oz, and scoring Apgars of 9/9. There was clear, nonfoul fluid. Placenta was expressed intact, without any foul smell or evidence of abruption. Placenta was grade 2. Both tubes were open and fluffy. Ovaries were of normal size, with cystic activity and decidual reaction present. There were no significant adhesions. The uterine veins were dilated and engorged, with large varicosities. The right uterine vein had a small open defect. This was uneventfully suture ligated. Reference body of operative note. SURGICAL TECHNIQUE: Prior to surgery, I met the patient and her to discuss the procedure, and to answer any questions. Informed consent was given, and she confirmed her desire for a tubal ligation. She was then uneventfully transported to the OR. The patient was placed on the OR table in supine. She was then moved to the sitting position, where spinal anesthetic was instilled. She was then moved back to the supine; however, the anesthetic effect was not as dense as necessary. The patient was then moved back to the sitting position, and a second spinal dose was given. When she moved back to the supine, this had the desired effect. She was prepped and draped in a customary sterile fashion. Timeout briefing was done per protocol. After ensuring anesthesia level was good through the level through T10, the procedure was begun. A Pfannenstiel incision was used to open the abdominal wall. The prior section was excised with an elliptical incision. A hysterotomy was carved with a scalpel in the lower uterine segment. Upon entry into the amniotic cavity, clear nonfoul fluid was expressed. Electrical Assembler secured the head with his right hand, and guided it through the hysterotomy, and into the laparotomy wound. Banking Manager applied a pressure to effect the expulsion of the . Cord was doubly clamped and transected. Cord sample was sent, and cord segment doubly clamped, and placed on the back table. The uterus was exteriorized. With gentle massage, the placenta was expressed intact. All membranes were removed from the uterus. There were no intracavitary defects. Hysterotomy was closed in 2 layers, first an interlocking stitch of 0 Vicryl, followed by an imbricating stitch of 0 Vicryl done in a cardinal fashion. In examining the uterus and broad ligaments, the varicosities were noted, and on the right side, a trickle of blood from a defect in the right uterine vein. The area was doubly clamped with peons. Next, suture ligature was placed above and below the defect, and tied into place. The staunched the bleeding. Care was taken not to include the right ovarian vessels. Next, the uterus was placed back into the uterine cavity, and we prepared for closure. The peritoneum was closed with a running suture of 2-0 Vicryl. This closure included the medial portion of the rectus muscles, to correct a diastasis recti. Fascia was closed with a running stitch of 0 Vicryl. The subcutaneous space was closed with interrupted sutures of 2-0 Vicryl. Skin was closed with a running subcuticular stitch of 4-0 Vicryl. The wound was dressed with Dermabond. At the end of the case, all sponge, needle and instrument counts were confirmed as correct. The patient was uneventfully aroused, and sent to the recovery room in good condition. TD: 02/22/2018 09:42 KAREN
[2018-02-23] MEDS: PRENATAL VITAMIN TABLET PO SCH (10:17)
[2018-02-23] MEDS: FERROUS SULFATE 325 MG TABLET PO SCH (10:18)
[2018-02-23] MEDS ORDERED: LOPERAMIDE 2 MG CAPSULE PO PRN (20:53)
--- NOTE | 2018-02-23 22:57 | Discharge Plan ---
Discharge Plan Disposition: 01 Home, Self Care Condition: Good Diet: Regular Activity Restrictions: Activity as Tolerated Shower Restrictions: No Driving Restrictions: No Weight Bearing: Full Weight No Smoking: If you smoke, Please STOP! Call for help. Follow-up with: Ovi Bradley MD [Provider Admit Priv/Credential] -
--- NOTE | 2018-02-24 03:51 | DISCHARGE SUMMARY ---
Physician: Ovi Bradley MD DATE OF ADMISSION: 02/22/2018 DATE OF DISCHARGE: 02/24/2018 DIAGNOSES: 1. A 39-week gestation. 2. Prior section, vaginal after refused. 3. Desires sterilization. 4. Advanced maternal age. 5. Smoker. PROCEDURES: Repeat lower segment transverse section; bilateral salpingectomy. COMPLICATIONS: None. HISTORY: Mrs. Linda Davila is a 38-year-old 5, para 1-0-3-1 woman who [facility] and had an ALICIA of March 01. She had prior section and declined . Reference records. Basic labs: Blood type A positive, antibody screen negative, HIV negative, hepatitis B negative, RPR nonreactive, rubella immune. Glucola challenge test positive, but tolerance test normal. Reference typewritten H and P. HOSPITAL COURSE: The patient was admitted on the morning of 02/22/2018 and underwent an uneventful repeat section. At 0822, a living female was born weighing 7 pounds 6.4 ounces and scoring Apgars 9 and 9. Uterine, tubal and ovarian anatomy was all normal. Total blood loss was 500. At the time of section, there were large varicosities with a small defect with one on the right side that required ligation. The patient went to the recovery room in good condition. Reference typewritten operative report. Postoperatively, the patient recovered well, rapidly advancing full diet and activity. She nursed without any difficulty. Preoperative hemoglobin was 12.0, postoperatively was 9.7. By the morning of postoperative day two, the patient was desirous of discharge. She demonstrated self-care and care skills. She was discharged home with instructions for call back. She will report fevers 100.5 or greater, foul discharge, increasing abdominal pain or faintness. DISCHARGE MEDICATIONS: 1. Ibuprofen 600 q.6h. [id number]. 2. [place] 325/5 one tab q.4h. p.r.n. 3. Colace 250 mg b.i.d. 4. vitamins with iron. 5. Ferrous sulfate 325 mg 1 tab b.i.d. FOLLOWUP: Followup will be in two weeks for wound check and final followup at 6-8 weeks. TD: 02/23/2018 23:14
[2018-02-24] MEDS: DOCUSATE SODIUM 100 MG CAPSULE PO SCH ×2 (05:31→08:26)
[2018-02-24] MEDS: ceFAZolin 2 GM/50 ML 2 GM/50 ML BAG IV SCH ×3 (05:31→09:29)
[2018-02-24] MEDS: oxyCODONE 5 MG TABLET PO PRN ×2 (05:42→12:13)
[2018-02-24] MEDS: IBUPROFEN 600 MG TABLET PO SCH ×2 (05:42→12:12)
[2018-02-24] MEDS: LACTATED RINGERS 1,000 ML IV SCH ×2 (07:36→09:29)
[2018-02-24] MEDS: SODIUM CHLORIDE FLUSH 0.9% 10 ML SYRINGE IVP SCH ×2 (07:36→07:39)
[2018-02-24] MEDS: PRENATAL VITAMIN TABLET PO SCH (08:25)
[2018-02-24] MEDS: NICOTINE 14 MG PATCH TOP SCH (08:25)
[2018-02-24] MEDS: ACETAMINOPHEN 500 MG TABLET PO SCH (08:26)
[2018-02-24] MEDS: FERROUS SULFATE 325 MG TABLET PO SCH (08:26)
[2018-02-24 12:21] VITALS: BP 118/68
== END 2018-02-24 12:37 | disposition home or self-care (01) | DRG 766 ==
LOC: FBP 05:30
PROVIDERS: ADMIT Obstetrics & Gynecology; ATTEND Obstetrics & Gynecology
PROC: 0W3J0ZZ Control Bleeding in Pelvic Cavity, Open Approach (ICD-10-PCS; 2018-02-22)
PROC: 10D00Z1 Extraction of Products of Conception, Low, Open Approach (ICD-10-PCS; principal; 2018-02-22 07:30)
PROC: 0UT70ZZ Resection of Bilateral Fallopian Tubes, Open Approach (ICD-10-PCS; 2018-02-22 07:30)
DX: O34.211 Maternal care for low transverse scar from previous cesarean delivery (principal); O99.334 Smoking (tobacco) complicating childbirth; B00.9 Herpesviral infection, unspecified; O75.89 Other specified complications of labor and delivery; O67.8 Other intrapartum hemorrhage; Z3A.39 39 weeks gestation of pregnancy; Z37.0 Single live birth; Z30.2 Encounter for sterilization; Z86.19 Personal history of other infectious and parasitic diseases; Z86.59 Personal history of other mental and behavioral disorders
CPT/HCPCS: 36415; 81001; 85025; 85027; 86850; 86900; 86901; 88302; 99406